=== PATIENT | female | born 1950 | race Caucasian/White ===

== ENCOUNTER 2018-08-17 10:32 | Emergency (ER) | payer OTHER ==
[~2018-08-17] VITALS: Wt 70.5 kg
[~2018-08-17 10:32] MED LIST: LETR2.5T PO
--- NOTE | 2018-08-17 13:57 | ERD ---
ER Documentation Chief Complaint Chief Complaint L SHOULDER PAIN NON TRAUMATIC. LEFT SIDE HPI 68-year-old female history of breast cancer status post mastectomy and chemotherapy 7 years ago presents the ED complaining of ongoing, crampy, moderate, generalized, nonradiating abdominal pain for the last 2 weeks. Nausea but no vomiting, diarrhea or constipation. Denies dysuria, polyuria, hematuria or flank pain. Patient was seen 2 days ago at [facility] where complete work-up was performed eluding a noncontrast CT of the abdomen pelvis which was unremarkable. Treated for urinary tract infection with Keflex but continues to have pain. No relieving or exacerbating factors. In triage complained of left- sided shoulder pain which she has had chronically since her surgery. No history of trauma or fall. No arm swelling or redness. Denies chest pain, palpitations or shortness of breath. No fevers or chills. ROS All systems reviewed and are negative except as per history of present illness. Medications Home Meds Active Scripts Polyethylene Glycol* (Miralax*) 17 Gm Powd.pack, 17 GM PO DAILY, #7 Prov:CHELI NEELY MD 08/17/18 Reported Medications Cephalexin* (Cephalexin*) 500 Mg Capsule, 500 MG PO BID, #28 CAP PATIENT TAKE 1 TAB-DAILY 08/17/18 Naproxen* (Naproxen*) 500 Mg Tablet, 500 MG PO BID, TAB 08/17/18 Acetaminophen* (Acetaminophen*) 325 Mg Tablet, 650 MG PO Q6H PRN for PAIN AND OR ELEVATED TEMP, #30 TAB 08/17/18 Letrozole* (Letrozole*) 2.5 Mg Tablet, 2.5 MG PO DAILY, TAB 08/17/18 Discontinued Reported Medications Letrozole* (Letrozole*) 2.5 Mg Tablet, 2.5 MG PO DAILY, TAB 01/06/15 Allergies Allergies: Coded Allergies: No Known Allergy (Unverified , 08/17/18) PMhx/Soc History of Surgery: Yes (LEFT BREAST MASTECTOMY, EYE) Anesthesia Reaction: No Hx Neurological Disorder: No Hx Respiratory Disorders: No Hx Cardiac Disorders: Yes (HTN) Hx Psychiatric Problems: No Hx Miscellaneous Medical Probl: Yes (BREAST CANCER, FATTY LIVER) Hx Alcohol Use: No Hx Substance Use: No Hx Tobacco Use: No FmHx No family history relevant to presenting complaint Physical Exam Vitals Vital Signs Date Temp Pulse Resp B/P (MAP) Pulse Ox O2 O2 Flow FiO2 Time Delivery Rate 08/17/18 73 18 173/91 99 Room Air 15:00 (118) 08/17/18 98.4 90 18 128/72 98 10:35 (90) Physical Exam Const: Moderate distress, anxious. Head: Atraumatic Eyes: Normal Conjunctiva. Anicteric. ENT: Normal External Ears, Nose and Mouth. Neck: Full range of motion. No JVD. Resp: Breath sounds equal and clear to auscultation bilaterally Cardio: Regular rate and rhythm, no murmurs Chest Wall: Status post left mastectomy. No swelling or tenderness. Abd: Soft, obese, normal bowel sounds, moderate, diffuse nonlocalizing tenderness but no rebound or guarding. No masses or abnormal pulsations. Skin: No petechiae or rashes Back: No midline or flank tenderness Ext: No cyanosis, or edema Neur: Awake and alert. No focal deficit. Psych: Anxious but not depressed Result Diagram: 08/17/18 1456 08/17/18 1456 Results 24 hrs Laboratory Tests Test 08/17/18 14:56 White Blood Count 10.0 10^3/ul Red Blood Count 4.00 10^6/ul Hemoglobin 11.8 g/dl Hematocrit 34.6 % Mean Corpuscular Volume 86.5 fl Mean Corpuscular Hemoglobin 29.5 pg Mean Corpuscular Hemoglobin Concent 34.1 g/dl Red Cell Distribution Width 13.0 % Platelet Count 437 10^3/UL Mean Platelet Volume 9.2 fl Immature Granulocytes % 0.300 % Neutrophils % 62.7 % Lymphocytes % 27.2 % Monocytes % 8.0 % Eosinophils % 1.1 % Basophils % 0.7 % Nucleated Red Blood Cells % 0.0 /100WBC Immature Granulocytes # 0.030 10^3/ul Neutrophils # 6.3 10^3/ul Lymphocytes # 2.7 10^3/ul Monocytes # 0.8 10^3/ul Eosinophils # 0.1 10^3/ul Basophils # 0.1 10^3/ul Nucleated Red Blood Cells # 0.0 10^3/ul Sodium Level 141 mmol/L Potassium Level 4.6 mmol/L Chloride Level 104 mmol/L Carbon Dioxide Level 26 mmol/L Anion Gap 11 Blood Urea Nitrogen 16 mg/dl Creatinine 0.77 mg/dl Est Glomerular Filtrat Rate mL/min > 60 mL/min Glucose Level 96 mg/dl Calcium Level 10.1 mg/dl Total Bilirubin 0.4 mg/dl Direct Bilirubin 0.00 mg/dl Indirect Bilirubin 0.4 mg/dl Aspartate Amino Transf (AST/SGOT) 34 IU/L Alanine Aminotransferase (ALT/SGPT) 35 IU/L Alkaline Phosphatase 93 IU/L Total Protein 8.6 g/dl Albumin 4.5 g/dl Globulin 4.10 g/dl Albumin/Globulin Ratio 1.09 Lipase 275 U/L Current Medications Medications Dose Sig/Joe Start Time Status Last (Trade) Ordered Route PRN Stop Time Admin Dose Reason Admin Sodium 1,000 ml @ Q1H STAT 08/17/18 DC 08/17/18 Chloride 1,000 mls/hr IV 14:15 14:53 08/17/18 15:14 Ketorolac 15 mg ONCE STAT 08/17/18 DC 08/17/18 Tromethamine IV 14:15 14:53 (Toradol) 08/17/18 14:17 IV Flush 10 ml STK-MED 08/17/18 DC 08/17/18 (NS 10 ml) ONCE .ROUTE 15:39 15:50 08/17/18 15:40 Sodium 100 ml @ ud STK-MED 08/17/18 DC 08/17/18 Chloride ONCE .ROUTE 15:39 15:50 08/17/18 15:40 Iohexol 150 ml STK-MED 08/17/18 DC 08/17/18 (Omnipaque ONCE .ROUTE 15:39 15:50 300mg/ ml) 08/17/18 15:40 Procedures/MDM DOCUMENTS REVIEWED: ED nurse, prior ED. IMAGING: PROCEDURE: CT ABDOMEN AND PELVIS WITH IV CONTRAST. CLINICAL INDICATION: Abdominal pain TECHNIQUE: CT scan of the abdomen and pelvis with contrast was performed on a multidetector high-resolution CT scanner following the use of IV contrast. 100 cc Omnipaque-300 was administered. Coronal and sagittal reformatted images were obtained from the axial source images. Images were reviewed on a high-resolution PACS workstation. The total exam CTDI equals 8.8 mGy and the total exam DLP equals 497.7 mGy-cm. One or more of the following dose reduction techniques were used: Automated exposure control. Adjustment of the mA and/or kV according to patient size. Use of iterative reconstruction technique. DICOM images are available. COMPARISON: None FINDINGS: CT abdomen: The lung bases are clear. The heart size is within normal limits. There is no significant pericardial effusion. Hepatic morphology is within normal limits. No gross contour deforming masses. The gallbladder is within normal limits. No evidence of intrahepatic or extrahepatic biliary dilatation. The spleen and pancreas are within normal limits. Both adrenal glands are within normal limits. Both kidneys are in normal anatomic position. No evidence of obstruction or hydronephrosis. No gross renal/ureteric calculi. The visualized GI tract demonstrate normal caliber loops of small and large bowel. No evidence of bowel obstruction. The appendix is within normal limits. There is postsurgical changes in the region of the GE junction. There is mild thickening of the shaver of the stomach, which is collapsed. Atherosclerotic calcification aorta. No significant retroperitoneal lymph adenopathy. CT pelvis: The bladder is distended. Uterus is within normal limits. The rectosigmoid colon demonstrates stool. No significant free fluid. No pelvic lymphadenopathy. The visualized osseous structures demonstrates multilevel degenerative disc disease of the lumbosacral spine. IMPRESSION: 1. No evidence of bowel obstruction. Stool filled loops of large bowel suggestive of constipation. The appendix is within normal limits. 2. Postsurgical changes in the region of GE junction. Mild thickening of the shaver of the stomach. Although this could be secondary to incomplete distension, gastritis is not excluded. 3. No evidence of free fluid or free air. No gross focal fluid collections. 4. Distended bladder which otherwise appears to be within normal limits. RPTAT: AAPP Physician Johnie Date Time Electronically viewed and signed by Physician Johnie on 08/17/2018 16:16 JL/ MEDICAL DECISION MAKIN-year-old female history of breast cancer status post mastectomy and chemotherapy 7 years ago presents the ED complaining of ongoing, crampy, moderate, generalized, nonradiating abdominal pain for the last 2 weeks. CBC to evaluate for leukocytosis and anemia is unremarkable. Chemistry reveals no evidence of acute electrolyte abnormalities, renal insufficiency or hyperglycemia. Liver function tests are negative for hyperbilirubinemia or transaminitis. Risks and benefits of CT scan were discussed with the patient and her was at the bedside. Her previous CT at [facility] she refused IV contrast but is now amenable as pain is ongoing. CT was performed to evaluate for an acute intra-abdominal process including but not limited to diverticulitis, appendicitis, bowel obstruction, obstructive uropathy, mass and abdominal aortic aneurysm significant for constipation. Urinalysis deferred as patient is already taking cephalexin and review of her prior urinalysis was unremarkable. Pain resolved with intravenous hydration analgesics. In the absence of signs of serious, acute disease patient is stable for discharge with appropriate analgesics, precautionary instructions and outpatient follow-up as counseled. Counseled patient and family regarding diagnostic workup, diagnosis and need for followup. Understands to return to ED if symptoms recur, worsen or any other concerns. Departure Diagnosis: Primary Impression: Acute generalized abdominal pain Additional Impressions: Constipation Constipation type: unspecified constipation type Qualified Codes: K59.00 - Constipation, unspecified History of breast cancer Condition: CHELI Fajardo MD Aug 17, 2018 13:57
[2018-08-17] MEDS ORDERED: KETOROLAC 15 MG INJ IV STA (14:15)
[2018-08-17] MEDS ORDERED: SOD CHLORIDE 0.9% 1,000 ML IV STA (14:15)
[2018-08-17] MEDS ORDERED: LETR2.5T PO (15:12)
[2018-08-17] MEDS ORDERED: ACET325T45 PO (15:13)
[2018-08-17] MEDS ORDERED: NAPR-688 PO (15:13)
[2018-08-17] MEDS ORDERED: CEPH500C PO (15:15)
[2018-08-17] MEDS ORDERED: SOD CHLORIDE 0.9% 100 ML ONE (15:39)
[2018-08-17] MEDS ORDERED: IOHEXOL 300MG/ML 150 ML BTL ONE (15:39)
[2018-08-17] MEDS ORDERED: POLY17PO6 PO (18:27)
[2018-08-17 19:32] VITALS: BP 138/81; PULSE 70; RESP 16
== END 2018-08-17 19:33 | disposition home or self-care (01) ==
LOC: E/R 10:32
DX: K59.00 Constipation, unspecified (principal); I10 Essential (primary) hypertension; R10.84 Generalized abdominal pain; Z85.3 Personal history of malignant neoplasm of breast
CPT/HCPCS: 36415; 74177; 80053; 83690; 85025; 96374; J1885; J7030; Q9967; Z7502; Z7610